=== PATIENT | male | born 1975 | race Caucasian/White ===

== ENCOUNTER 2018-06-25 21:54 | Emergency (ER) | payer OTHER ==
[2018-06-25 22:07] VITALS: RESP 20
--- NOTE | 2018-06-25 23:30 | C.PDOC ---
History Of Present Illness 42 year old male presents with left ankle and left foot pain after jumping off the back of a tractor trailer earlier today. Denies weakness, numbness, or other injury. Time Seen by Provider: 06/25/18 22:25 Chief Complaint (Nursing): Lower Extremity Problem/Injury History Per: Patient History/Exam Limitations: no limitations Onset/Duration Of Symptoms: Hrs Current Symptoms Are (Timing): Still Present Recent travel outside of the [place]: No - Ankle/Foot Description Of Injury: Fell Past Medical History Reviewed: Historical Data, Nursing Documentation, Vital Signs Vital Signs: Last Vital Signs Temp 97.5 F L 06/25/18 22:01 Pulse 85 06/25/18 22:01 Resp 20 06/25/18 22:01 BP 151/94 H 06/25/18 22:01 Pulse Ox 100 06/25/18 22:01 Family History: States: Unknown Family Hx - Social History Hx Alcohol Use: No Hx Substance Use: No Review Of Systems Musculoskeletal: Positive for: Other (Left foot/ankle pain) Neurological: Negative for: Weakness, Numbness Physical Exam - Physical Exam Appears: Non-toxic Skin: Normal Color, Warm Head: Atraumatic, Normacephalic Eye(s): bilateral: Normal Inspection Extremity: Capillary Refill (<2 seconds), Other (Moderate tenderness and swelling to left lateral malleolus and proximal forefoot, tenderness to plantar aspect of left foot. No crepitus, no ecchymosis, no erythema) Pulses: Left Dorsalis Pedis: Normal, Right Dorsalis Pedis: Normal Neurological/Psych: Oriented x3, Normal Speech, Normal Motor, Normal Sensation Gait: Unable To Assess ED Course And Treatment O2 Sat by Pulse Oximetry: 100 (Room air) Pulse Ox Interpretation: Normal - Other Rad Left ankle x-ray X-Ray: Interpreted by Me, Viewed By Me Interpretation: Calcaneal fracture. Left foot x-ray X-Ray: Interpreted by Me, Viewed By Me Interpretation: Calcaneal fracture. Left heel x-ray X-Ray: Interpreted by Me, Viewed By Me Interpretation: Calcaneal fracture. Progress Note: X-rays showed positive calcaneal fracture. Motrin given for pain. Patient was seen and evaluated by podiatry resident who placed patient in posterior splint, instructed in crutch walk by CP, and instructed to follow up with Dr. Chase at the podiatry clinic in [address] of LLE ordered at podiatry request Reassessment Condition: Improved - Physician Consult Information Time Consulting Physician Contacted: 02:47 Disposition Counseled Patient/Family Regarding: Diagnosis, Need For Followup, Rx Given - Disposition Referrals: Shante Chase DPM [Staff Provider] - Disposition: HOME/ ROUTINE Disposition Time: 23:28 Condition: STABLE Additional Instructions: Please follow up with Dr Chase, podiatry clinic sunday in clinic Elevate leg- Do not weight bear Take medications as directed Return to ER if worse Prescriptions: Albuterol HFA [Ventolin HFA 90 mcg/actuation (8 g)] 2 puff IH [id number] #1 inhaler predniSONE [Prednisone] 40 mg PO DAILY #8 tab Forms: [employer] (Uzbek) - Clinical Impression Clinical Impression: Heel bone fracture - PA / ACTUARY / Resident Statement MD/DO has reviewed & agrees with the documentation as recorded. - Scribe Statement The provider has reviewed the documentation as recorded by the Scribgalen Cope All medical record entries made by the Gerdaibgalen were at my direction and personally dictated by me. I have reviewed the chart and agree that the record accurately reflects my personal performance of the history, physical exam, medical decision making, and the department course for this patient. I have also personally directed, reviewed, and agree with the discharge instructions and disposition.
--- NOTE | 2018-06-26 01:58 | CP.PCM.CON ---
History of Present Illness - History of Present Illness History of Present Illness: Podiatry Consult Note: Dr. Chase 42 year old male patient, with no PMHx, seen and evaluated for L foot pain. Patient states that he was working when jumped off the back of a truck and landed on his foot in correctly. He immediately felt pain and was unable to weightbear to the L lower extremity. He denies any nauesa/vomiting/fever/shortness of breath/chest pain/ numbness or tingling to L lower extremity. PMHx: Denies SH: Daily tobacco use, denies alcohol and drug use ALL: Denies Review of Systems - Constitutional Constitutional: As Per HPI Past Patient History - Past Social History Smoking Status: Heavy Smoker > 10 Cigarettes Daily - PSYCHIATRIC Hx Substance Use: No Meds Home Medications: Home Medication List Medication Instructions Recorded Confirmed Type Ibuprofen [Motrin] 600 mg PO Q6H #30 tab 06/26/18 Rx Allergies/Adverse Reactions: Allergies Allergy/AdvReac Type Severity Reaction Status Date / Time No Known Allergies Allergy Verified 06/25/18 22:01 Physical Exam - Constitutional Appears: Non-toxic, No Acute Distress - Head Exam Head Exam: ATRAUMATIC, NORMOCEPHALIC - Extremities Exam Additional comments: LLE focused exam: Vascular: DP/PT 2/4, CFT < 3 seconds, TG warm to warm, + 2 edema noted to left hindfoot/ankle Ortho: Pain with palpation of L heel, pain with palpation of calcaneus, pain with AROM/PROM, achilles tendon intact, no pain with calf compression Neuro: Gross and protective sensation intact Derm: No open lesions, no erythema, no clinical signs of infection - Neurological Exam Neurological exam: Alert, Oriented x3 - Psychiatric Exam Psychiatric exam: Normal Affect, Normal Mood Results - Vital Signs Recent Vital Signs: Last Vital Signs Temp 97.5 F L 06/25/18 22:01 Pulse 85 06/25/18 22:01 Resp 20 06/25/18 22:01 BP 151/94 H 06/25/18 22:01 Pulse Ox 100 06/25/18 23:30 Assessment & Plan - Assessment and Plan (Free Text) Assessment: 42 year old male patient, with no PMHx, with L calcaneal fracture Plan: Patient seen and evaluated Discussed in detail with Dr. Salvatore Sanabria foot/heel x-ray taken; acute comminuted impacted intra-articular fracture in the calcaneus L foot CT scan taken; minimally displaced comminuted calcaneal fracture Patient placed in posterior splint Educated patient on RICE protcol Encouraged smoking cessation Patient to follow up in podiatry clinic on Sunday with Dr. Chase Thank you for the consult - Date & Time Date: 06/26/18 Time: 01:57
[2018-06-26 01:59] VITALS: BP 138/88; PULSE 70; TEMP 98
[2018-06-26 02:33] VITALS: O2SAT 100
--- NOTE | 2018-06-26 08:46 | CT ---
Date of service: 06/26/2018 PROCEDURE: CT left foot HISTORY: heel fracture, foot injury, fell off truck COMPARISON: Not available TECHNIQUE: 2.5 mm contiguous axial sections were acquired through the left foot. Sagittal and coronal reformats were created from the axial scan. Contrast administered: None Total exam DLP: 441.13 mGy-cm This CT exam was performed using 1 or more of the following dose reduction techniques: Automated exposure control, adjustment of the mA and/or kV according to patient size, and/or use of iterative reconstruction technique. FINDINGS: There is a minimally displaced markedly comminuted calcaneal fracture extending through the entire length of the calcaneus and involving both the medial and lateral cortical surfaces. The fracture extends to involve both the anterior and posterior subtalar articulations. There is no other tarsal fracture identified. There is no lytic or blastic osseous lesion. There is soft tissue swelling seen over the lateral aspect of the foot. There is no hematoma. There is no mass identified.. IMPRESSION: Minimally displaced markedly comminuted calcaneal fracture. The preliminary findings for this examination were reported by [facility] at 4:10 a.m. on 06/26/2018. There is concurrence of this report with the preliminary findings.
--- NOTE | 2018-06-26 11:16 | RAD ---
Date of service: 06/26/2018 PROCEDURE: Radiographs of the left calcaneus/hindfoot. HISTORY: pain, fell off truck COMPARISON: None available. TECHNIQUE: Frontal and lateral radiographs of the calcaneus. FINDINGS: There is an acute comminuted nondisplaced impacted fracture in the mid body of the calcaneus. Bone alignment and mineralization are normal. There is a prominent dorsal calcaneal enthesophyte. There is moderate soft tissue swelling in the heel. IMPRESSION: Acute comminuted nondisplaced impacted fracture in the mid body of the calcaneus. The final report is tagged to the PA review folder.
--- NOTE | 2018-06-26 11:17 | RAD ---
Date of service: 06/26/2018 PROCEDURE: Left Foot Radiographs. HISTORY: pain, fall off truck COMPARISON: None. TECHNIQUE: 3 views obtained. FINDINGS: BONES: Acute comminuted impacted intra-articular fracture in the calcaneus. Bone alignment and mineralization are normal. There is a prominent dorsal calcaneal enthesophyte. JOINTS: Normal. SOFT TISSUES: Normal. OTHER FINDINGS: None. IMPRESSION: Acute comminuted impacted intra-articular fracture in the calcaneus.
--- NOTE | 2018-06-26 11:17 | RAD ---
Date of service: 06/25/2018 PROCEDURE: Left Ankle Radiographs. HISTORY: r/o fx COMPARISON: None available. TECHNIQUE: 3 views obtained. FINDINGS: BONES: Calcaneal fracture identified. This is likely comminuted with an intra-articular. JOINTS: Normal. No osteoarthritis. Ankle mortise maintained. Talar dome intact SOFT TISSUES: Soft tissue swelling attests to the acuity of the fracture. OTHER FINDINGS: None. IMPRESSION: Acute, comminuted fracture the left calcaneus. Concordant results with the preliminary interpretation rendered by the emergency department physician procedure.
== END 2018-06-26 03:13 | disposition home or self-care (01) ==
LOC: C.ER 21:54
DX: S92.002A Unspecified fracture of left calcaneus, initial encounter for closed fracture (principal); X50.9XXA Other and unspecified overexertion or strenuous movements or postures, initial encounter; Y92.89 Other specified places as the place of occurrence of the external cause; Y99.0 Civilian activity done for income or pay